=== PATIENT | female | born 1970 | race Caucasian/White ===

== ENCOUNTER 2019-05-24 06:45 | Outpatient (CLI) | payer OTHER | END 2019-05-24 23:59 | disposition home or self-care (01) | LOC: CVU 06:45 | PROVIDERS: ATTEND Surgery | DX: M79.604 Pain in right leg (principal); M79.605 Pain in left leg | CPT/HCPCS: 93970 ==

== ENCOUNTER 2020-04-02 14:30 | Outpatient (CLI) | payer OTHER ==
[2020-04-02] MEDS ORDERED: VALA500T4 PO (14:51)
[2020-04-02] MEDS ORDERED: ASCO100019 PO (15:06)
[2020-04-02] MEDS ORDERED: CALC-126 PO (15:06)
[2020-04-02] MEDS ORDERED: VITA1TAB19 PO (15:06)
[2020-04-07] MEDS ORDERED: FENTANYL PF 250 MCG/5ML ONE ×2 (08:01→09:58)
[2020-04-07] MEDS ORDERED: MIDAZOLAM 1 MG/ML, 2ML ONE (08:01)
[2020-04-07] MEDS ORDERED: KETOROLAC 30 MG/1 ML ONE (08:03)
[2020-04-07] MEDS ORDERED: GLYCOPYRROLATE 0.2MG/1ML, 5ML ONE (08:05)
[2020-04-07] MEDS ORDERED: NEOSTIGMINE 1 MG/ML, 10ML ONE (08:05)
[2020-04-07] MEDS ORDERED: DEXAMETHASONE 4 MG/ML, 1ML ONE (08:05)
[2020-04-07] MEDS ORDERED: ROCURONIUM 10MG/ML,5ML ONE (08:05)
[2020-04-07] MEDS ORDERED: ONDANSETRON 2MG/ML, 2ML ONE (08:05)
[2020-04-07] MEDS ORDERED: PROPOFOL 10 MG/ML, 20ML ONE (08:05)
[2020-04-07] MEDS ORDERED: CEFAZOLIN 1,000 MG ONE (08:05)
== END 2020-04-02 23:59 | disposition home or self-care (01) ==
LOC: STAR 14:30
PROVIDERS: ATTEND Obstetrics & Gynecology Female Pelvic Medicine and Reconstructive Surgery
DX: Z02.9 Encounter for administrative examinations, unspecified (principal)

== ENCOUNTER 2020-04-07 08:06 | Day surgery (SDC) | payer OTHER ==
[~2020-04-07] VITALS: Ht 166.4 cm; Wt 66.5 kg
[~2020-04-07 08:06] MED LIST: ASCO100019 PO; CALC-126 PO; VALA500T4 PO; VITA1TAB19 PO
[2020-04-07] MEDS ORDERED: LACTATED RINGERS 1,000 ML IV SCH ×2 (08:59→11:21)
[2020-04-07] MEDS ORDERED: ACETAMINOPHEN 500 MG TABLET PO STA (09:00)
[2020-04-07] MEDS ORDERED: GABAPENTIN 300 MG CAPSULE PO STA (09:00)
[2020-04-07] MEDS ORDERED: INDIGO CARMINE 0.8%, 5ML ONE (09:01)
[2020-04-07] MEDS ORDERED: BUPIVACAINE/PF-EPI 0.25% 1:200K ONE (09:01)
[2020-04-07 09:03] VITALS: BP 117/82
[2020-04-07] MEDS ORDERED: CHLORHEXIDINE 15 ML UDC MM ONE (09:30)
[2020-04-07] MEDS ORDERED: LABETALOL 5MG/ML, 20ML IV PRN (09:30)
[2020-04-07] MEDS ORDERED: HALOPERIDOL 5 MG/ML IV PRN (09:30)
[2020-04-07] MEDS ORDERED: morphine SULFATE 10 MG/ML, 1ML IVPush PRN (09:30)
[2020-04-07] MEDS ORDERED: PROMETHAZINE 25 MG/ML, 1ML IVPush PRN (09:30)
[2020-04-07] MEDS ORDERED: HYDROmorphone 1 MG/ML, 1ML INJ IVPush PRN (09:30)
[2020-04-07] MEDS ORDERED: hydrALAzine 20 MG/ML, 1ML IV PRN (09:30)
[2020-04-07] MEDS ORDERED: MEPERIDINE/PF 25MG/0.5ML IVPush PRN (09:30)
[2020-04-07] MEDS ORDERED: SCOP1PAT11 TD (09:34)
[2020-04-07 09:37] LABS: HCG UR SG 1.033 (1.003-1.030)
[2020-04-07] MEDS ORDERED: FENTANYL PF 250 MCG/5ML ONE ×2 (09:41)
[2020-04-07] MEDS ORDERED: SCOPOLAMINE 1MG PATCH TD ONE (09:41)
[2020-04-07] MEDS ORDERED: CEFAZOLIN 1,000 MG ONE (09:41)
[2020-04-07] MEDS ORDERED: MIDAZOLAM 1 MG/ML, 2ML ONE (09:41)
[2020-04-07] MEDS ORDERED: ONDANSETRON 2MG/ML, 2ML ONE (09:41)
[2020-04-07] MEDS ORDERED: DEXAMETHASONE 4 MG/ML, 1ML ONE (09:41)
[2020-04-07] MEDS ORDERED: KETOROLAC 30 MG/1 ML ONE (09:41)
[2020-04-07] MEDS ORDERED: ROCURONIUM 10MG/ML,5ML ONE (09:41)
[2020-04-07] MEDS ORDERED: GLYCOPYRROLATE 0.2MG/1ML, 5ML ONE (09:41)
[2020-04-07] MEDS ORDERED: NEOSTIGMINE 1 MG/ML, 10ML ONE (09:41)
[2020-04-07] MEDS ORDERED: PROPOFOL 10 MG/ML, 20ML ONE (09:41)
[2020-04-07] MEDS ORDERED: PROMETHAZINE 25 MG SUPP PR ONE (11:30)
[2020-04-07] MEDS ORDERED: ONDANSETRON 2MG/ML, 2ML IVPush PRN (11:30)
[2020-04-07] MEDS ORDERED: OXYcodone 5 MG/5 ML ORAL.SOL UDC PO PRN (11:30)
[2020-04-07] MEDS ORDERED: IBUPROFEN 600 MG TABLET PO PRN (11:30)
[2020-04-07] MEDS ORDERED: OXYcodone/APAP 5/325MG TABLET PO PRN (11:30)
[2020-04-07] MEDS ORDERED: FENTANYL PF 100 MCG/2ML ONE (11:37)
[2020-04-07] MEDS ORDERED: OXYcodone 5 MG/5 ML ORAL.SOL UDC ONE (11:37)
[2020-04-07] MEDS: OXYcodone 5 MG/5 ML ORAL.SOL UDC PO PRN ×2 (11:40→12:04)
[2020-04-07] MEDS: FENTANYL PF 100 MCG/2ML IV PRN ×2 (11:42→11:48)
== END 2020-04-07 16:00 | disposition home or self-care (01) ==
LOC: OUT 08:06
PROVIDERS: ATTEND Obstetrics & Gynecology Female Pelvic Medicine and Reconstructive Surgery
DX: D25.9 Leiomyoma of uterus, unspecified (principal); Z11.59 Encounter for screening for other viral diseases; R35.0 Frequency of micturition; Z79.899 Other long term (current) drug therapy; Z80.1 Family history of malignant neoplasm of trachea, bronchus and lung; Z83.3 Family history of diabetes mellitus; Z82.49 Family history of ischemic heart disease and other diseases of the circulatory system; Z83.42 Family history of familial hypercholesterolemia
CPT/HCPCS: 36415; 58554; 81025; 87635; 88307; J0690; J1100; J1885; J2250; J2405; J2704; J2710; J3010; J7120; S2900